=== PATIENT | female | born 1955 | race Caucasian/White ===

== ENCOUNTER 2020-07-16 11:51 | Emergency (ER) | payer MEDICARE, OTHER ==
[~2020-07-16] VITALS: Ht 152.4 cm; Wt 70.3 kg
[2020-07-16] MEDS ORDERED: DEXAMETHASONE SOD PHOS INJ 4 MG/ML VIAL IM ONE ×2 (12:30→13:00)
== END 2020-07-16 13:32 | disposition home or self-care (01) ==
LOC: FSED 12:30
DX: L23.7 Allergic contact dermatitis due to plants, except food (principal); E78.5 Hyperlipidemia, unspecified
CPT/HCPCS: 99282; J1100

== ENCOUNTER → 2022-06-02 | Outpatient (CLI) | payer MEDICARE, OTHER | LOC: MAMMO 09:28 | PROVIDERS: ATTEND Family Medicine | DX: Z12.31 Encounter for screening mammogram for malignant neoplasm of breast (principal); Z13.820 Encounter for screening for osteoporosis | CPT/HCPCS: 77067; 77080 ==